=== PATIENT | female | born 1950 | race Caucasian/White ===

== ENCOUNTER 2024-08-22 06:59 | Day surgery (SDC) | payer OTHER ==
[~2024-08-22] VITALS: Ht 162.6 cm; Wt 90.5 kg
[~2024-08-22 06:59] MED LIST: AMLO-258 PO; BENZ0.5T32 PO; HALO10TA21 PO; PRAV20TA4 PO; SODIUM CHLORIDE 0.9% 1,000 ML ONE; VENL-67 PO
[2024-08-22] MEDS ORDERED: LIDOCAINE 4% 50 ML SOLUTION TP ONE (07:00)
[2024-08-22] MEDS ORDERED: BENZOCAINE 20% 50 MCG/SPRAY 57 GM TP ONE (07:00)
[2024-08-22] MEDS ORDERED: LIDOCAINE 2% 11 ML JELLY TP ONE (07:00)
[2024-08-22] MEDS: SODIUM CHLORIDE 0.9% 1,000 ML IV ONE (07:35)
[2024-08-22] MEDS ORDERED: LOSA-381 PO (07:35)
[2024-08-22] MEDS ORDERED: GABA-1181 PO (07:35)
[2024-08-22] MEDS ORDERED: CITA-144 PO (07:35)
[2024-08-22] MEDS ORDERED: DOXY-354 PO (07:35)
[2024-08-22] MEDS ORDERED: MONT-35 PO (07:35)
[2024-08-22] MEDS ORDERED: FAMO20 PO (07:35)
[2024-08-22] MEDS ORDERED: QUET100T PO (07:35)
[2024-08-22] MEDS ORDERED: PROM118S5 PO (07:35)
[2024-08-22] MEDS ORDERED: ATOR20TA PO (07:35)
[2024-08-22] MEDS ORDERED: MEMA10TA24 PO (07:35)
[2024-08-22] MEDS ORDERED: TRAZ-257 PO (07:35)
[2024-08-22] MEDS ORDERED: OXYB5TAB20 PO (07:35)
[2024-08-22] MEDS ORDERED: CHOL25TA4 PO (07:35)
[2024-08-22] MEDS ORDERED: NALOXONE HCL 0.4 MG/ML VIAL ONE (08:13)
[2024-08-22] MEDS ORDERED: ATROPINE SULFATE 0.1 MG/ML 10 ML SYRINGE IVP ONE (08:13)
[2024-08-22] MEDS ORDERED: FLUMAZENIL 0.1 MG/ML 5 ML VIAL IVP ONE (08:13)
[2024-08-22] MEDS ORDERED: EPINEPHrine 1:10,000 [1 MG/10 ML] SYRINGE ONE (08:13)
[2024-08-22] MEDS ORDERED: SODIUM TETRADECYL SULFATE 3% 60 MG/2 ML VIAL IVP ONE (08:13)
[2024-08-22] MEDS ORDERED: DiphenhydrAMINE HCL 50 MG/ML VIAL ONE (08:13)
[2024-08-22] MEDS ORDERED: MIDAZOLAM HCL 2 MG/2 ML VIAL ONE (08:14)
[2024-08-22] MEDS ORDERED: FentaNYL CITRATE PF 100 MCG/2 ML VIAL ONE (08:14)
[2024-08-22 09:15] VITALS: PULSE 72; RESP 18; O2SAT 96
[2024-08-22] MEDS ORDERED: MethylPREDNISolone SOD SUCC 125 MG/2 ML VIAL ONE (09:39)
[2024-08-22] MEDS: MethylPREDNISolone SOD SUCC 125 MG/2 ML VIAL IVP ONE (09:49)
== END 2024-08-22 13:10 | disposition home or self-care (01) ==
LOC: SURGERY 06:59
PROVIDERS: ATTEND Internal Medicine Critical Care Medicine
DX: R05.3 Chronic cough (principal); J38.4 Edema of larynx; B37.0 Candidal stomatitis; I10 Essential (primary) hypertension; F32.A Depression, unspecified; E78.00 Pure hypercholesterolemia, unspecified; M19.90 Unspecified osteoarthritis, unspecified site; Z79.899 Other long term (current) drug therapy
CPT/HCPCS: 31623; 31624; 71045; 87015; 87070; 87101; 87206; 87220; 88108; J0171; J0461; J1200; J2250; J2310; J2919; J3010; J3490; J7030; Z7610